=== PATIENT | female | born 1960 | race Caucasian/White ===

== ENCOUNTER → 2018-02-26 | Outpatient (CLI) | payer OTHER ==
[~2018-02-26] MED LIST: ALBU90OI6 INH; AZIT250 PO; CLON.5 PO; FOLI1 PO; HYDHOMSY PO; IBUP800 PO; LEVSOD100; LEVSOD100 PO; Leflunomide10 MG PO; METPRE4DP PO; METTREX2.5 PO; MODA200 PO; PRED5 PO; PROCODE120 PO; TRAZ50 PO; [UNRECOGNIZED DRUG - OTHER]
== END | disposition home or self-care (01) ==
LOC: LAB SHORT 16:32 → LAB 16:32
PROVIDERS: Hospitalist
DX: Z12.4 Encounter for screening for malignant neoplasm of cervix (principal)
CPT/HCPCS: G0145

== ENCOUNTER → 2018-04-08 | Outpatient (CLI) | payer OTHER | END | disposition home or self-care (01) | LOC: LAB SHORT 08:11 → PLD 08:11 | DX: R87.612 Low grade squamous intraepithelial lesion on cytologic smear of cervix (LGSIL) (principal) | CPT/HCPCS: 88305 ==

== ENCOUNTER → 2018-10-26 | Outpatient (CLI) | payer OTHER ==
[~2018-10-26] MED LIST changes: +XELJANZ XR11 MG
== END | disposition home or self-care (01) ==
LOC: PLD 14:34 → LAB SHORT 14:34
DX: M21.20 Flexion deformity, unspecified site (principal); M06.39 Rheumatoid nodule, multiple sites; M79.673 Pain in unspecified foot
CPT/HCPCS: 88305

== ENCOUNTER → 2018-12-18 | Outpatient (CLI) | payer OTHER | END | disposition home or self-care (01) | LOC: LAB SHORT 15:19 → PLD 15:19 | DX: D21.10 Benign neoplasm of connective and other soft tissue of unspecified upper limb, including shoulder (principal) | CPT/HCPCS: 88305 ==

== ENCOUNTER → 2019-02-18 | Outpatient (CLI) | payer OTHER ==
[2019-02-18 14:17] LABS: Free Thyroxine 1.19 ng/dL (0.70-1.60)
[2019-02-18 14:19] LABS: Thyroid Stimulating Hormone 0.162 uIU/mL (0.360-4.800)
== END | disposition home or self-care (01) ==
LOC: LAB SHORT 13:36 → LAB 13:36
PROVIDERS: Hospitalist
DX: E03.9 Hypothyroidism, unspecified (principal)
CPT/HCPCS: 84439; 84443

== ENCOUNTER → 2019-02-26 | Outpatient (CLI) | payer OTHER | END | disposition home or self-care (01) | LOC: PLD 15:11 → LAB SHORT 15:11 | DX: L92.8 Other granulomatous disorders of the skin and subcutaneous tissue (principal); R68.89 Other general symptoms and signs | CPT/HCPCS: 88305 ==

== ENCOUNTER → 2019-04-22 | Outpatient (CLI) | payer OTHER ==
[2019-04-26 13:06] LABS: HPV 16 Positive (Negative); HPV 18 Negative (Negative); HPV OTHER HR TYPES Positive (Negative)
== END | disposition home or self-care (01) ==
LOC: LAB SHORT 10:55 → LAB 10:55
PROVIDERS: Obstetrics & Gynecology
DX: Z01.419 Encounter for gynecological examination (general) (routine) without abnormal findings (principal)
CPT/HCPCS: 87624; 87625; G0123

== ENCOUNTER 2019-10-27 00:19 | Day surgery (SDC) | payer OTHER ==
[2019-10-27] MEDS ORDERED: OMEPRAZOLE20 MG PO (10:20)
== END 2019-10-27 11:27 | disposition home or self-care (01) ==
LOC: ATC 00:19
DX: M05.89 Other rheumatoid arthritis with rheumatoid factor of multiple sites (principal); E03.9 Hypothyroidism, unspecified; Z87.891 Personal history of nicotine dependence; Z79.899 Other long term (current) drug therapy
CPT/HCPCS: 96365; A9270; J1602

== ENCOUNTER 2019-11-24 00:14 | Day surgery (SDC) | payer OTHER ==
[~2019-11-24 00:14] MED LIST changes: +OMEPRAZOLE20 MG PO
== END 2019-11-24 11:13 | disposition home or self-care (01) ==
LOC: ATC 00:14
DX: M05.79 Rheumatoid arthritis with rheumatoid factor of multiple sites without organ or systems involvement (principal); E03.9 Hypothyroidism, unspecified; Z79.899 Other long term (current) drug therapy; Z87.891 Personal history of nicotine dependence
CPT/HCPCS: 96365; J1602

== ENCOUNTER 2020-08-30 00:30 | Day surgery (SDC) | payer MEDICARE, OTHER ==
[~2020-08-30 00:30] MED LIST changes: +PRAV20 PO; +SIMPONI AR50 MG/4 M1 IV
== END 2020-08-30 10:20 | disposition home or self-care (01) ==
LOC: ATC 00:30
DX: M05.89 Other rheumatoid arthritis with rheumatoid factor of multiple sites (principal); M85.80 Other specified disorders of bone density and structure, unspecified site; E03.9 Hypothyroidism, unspecified; Z87.891 Personal history of nicotine dependence; Z79.1 Long term (current) use of non-steroidal anti-inflammatories (NSAID); Z79.899 Other long term (current) drug therapy
CPT/HCPCS: 96365; A9270; J1602

== ENCOUNTER 2020-12-01 00:17 | Day surgery (SDC) | payer MEDICARE, OTHER ==
[2021-03-08] MEDS ORDERED: RENFLEXIS100 M1 IV (13:46)
== END 2020-12-01 10:55 | disposition home or self-care (01) ==
LOC: ATC 00:17
DX: M05.79 Rheumatoid arthritis with rheumatoid factor of multiple sites without organ or systems involvement (principal); E03.9 Hypothyroidism, unspecified; M85.80 Other specified disorders of bone density and structure, unspecified site; Z87.891 Personal history of nicotine dependence
CPT/HCPCS: 96413; 96415; A9270; J1745; J7050

== ENCOUNTER 2020-12-25 00:21 | Day surgery (SDC) | payer MEDICARE, OTHER ==
[2021-03-08] MEDS ORDERED: RENFLEXIS100 M1 IV (13:46)
== END 2020-12-25 11:44 | disposition home or self-care (01) ==
LOC: ATC 00:21
DX: M05.79 Rheumatoid arthritis with rheumatoid factor of multiple sites without organ or systems involvement (principal); E03.9 Hypothyroidism, unspecified; Z87.891 Personal history of nicotine dependence
CPT/HCPCS: 96413; 96415; A9270; J1745; J7050

== ENCOUNTER 2021-05-03 00:20 | Day surgery (SDC) | payer MEDICARE, OTHER ==
[~2021-05-03 00:20] MED LIST changes: +RENFLEXIS100 M1 IV
== END 2021-05-03 16:08 | disposition home or self-care (01) ==
LOC: ATC 00:20
DX: M05.79 Rheumatoid arthritis with rheumatoid factor of multiple sites without organ or systems involvement (principal); E03.9 Hypothyroidism, unspecified; Z87.891 Personal history of nicotine dependence; Z79.52 Long term (current) use of systemic steroids
CPT/HCPCS: 96413; 96415; J1745; J7050

== ENCOUNTER → 2021-05-31 | Outpatient (CLI) | payer MEDICARE, OTHER ==
[2021-05-31 16:51] LABS: Free Thyroxine 1.11 ng/dL (0.70-1.60); Thyroid Stimulating Hormone 0.038 uIU/mL (0.360-4.800)
== END | disposition home or self-care (01) ==
LOC: LAB 14:10 → LAB SHORT 14:10
PROVIDERS: Hospitalist
DX: E03.9 Hypothyroidism, unspecified (principal)
CPT/HCPCS: 84439; 84443

== ENCOUNTER 2021-06-28 03:59 | Day surgery (SDC) | payer MEDICARE ==
[~2021-06-28] VITALS: Wt 55.7 kg
== END 2021-06-28 16:32 | disposition home or self-care (01) ==
LOC: ATC 03:59
DX: M05.79 Rheumatoid arthritis with rheumatoid factor of multiple sites without organ or systems involvement (principal); E03.9 Hypothyroidism, unspecified; Z87.891 Personal history of nicotine dependence
CPT/HCPCS: 96413; 96415; J1745; J7050

== ENCOUNTER 2021-08-15 02:22 | Day surgery (SDC) | payer MEDICARE ==
[~2021-08-15] VITALS: Wt 53.4 kg
== END 2021-08-15 16:05 | disposition home or self-care (01) ==
LOC: ATC 02:22
DX: M05.79 Rheumatoid arthritis with rheumatoid factor of multiple sites without organ or systems involvement (principal); E03.9 Hypothyroidism, unspecified; Z86.16 Personal history of COVID-19; Z87.891 Personal history of nicotine dependence
CPT/HCPCS: 96413; 96415; J1745; J7050

== ENCOUNTER 2021-10-03 05:17 | Day surgery (SDC) | payer MEDICARE | END 2021-10-03 16:50 | disposition home or self-care (01) | LOC: ATC 05:17 | DX: M05.79 Rheumatoid arthritis with rheumatoid factor of multiple sites without organ or systems involvement (principal); E03.9 Hypothyroidism, unspecified; M85.80 Other specified disorders of bone density and structure, unspecified site; Z87.891 Personal history of nicotine dependence | CPT/HCPCS: 96413; 96415; A9270; J1745; J7050 ==

== ENCOUNTER 2021-11-22 01:05 | Day surgery (SDC) | payer MEDICARE ==
[~2021-11-22] VITALS: Wt 51.8 kg
== END 2021-11-22 16:27 | disposition home or self-care (01) ==
LOC: ATC 01:05
DX: M05.79 Rheumatoid arthritis with rheumatoid factor of multiple sites without organ or systems involvement (principal); E03.9 Hypothyroidism, unspecified; Z87.891 Personal history of nicotine dependence; Z79.899 Other long term (current) drug therapy
CPT/HCPCS: 96413; 96415; A9270; J1745; J7050

== ENCOUNTER 2022-01-03 00:14 | Day surgery (SDC) | payer MEDICARE ==
[~2022-01-03] VITALS: Wt 51.6 kg
[~2022-01-03 00:14] MED LIST changes: +ACET500 PO; +IBUP400 PO; +OXYC5 PO; +Prednisone10 MG PO
[2022-01-03] MEDS ORDERED: INFLECTRA100 MG IV (10:34)
[2022-01-04 06:10] LABS: HCV ANTIBODY <0.1 (0.0-0.9); HEP B CORE AB, IGM Negative (Negative); HEP B CORE AB, TOT Negative (Negative)
== END 2022-01-03 12:02 | disposition home or self-care (01) ==
LOC: ATC 00:14
PROVIDERS: Internal Medicine Rheumatology
DX: M05.79 Rheumatoid arthritis with rheumatoid factor of multiple sites without organ or systems involvement (principal); E03.9 Hypothyroidism, unspecified; Z87.891 Personal history of nicotine dependence
CPT/HCPCS: 86704; 86705; 86803; 96413; 96415; J7050; Q5103

== ENCOUNTER 2022-03-27 08:35 | Day surgery (SDC) | payer MEDICARE ==
[~2022-03-27] VITALS: Ht 160 cm; Wt 50.1 kg
[~2022-03-27 08:35] MED LIST changes: +CARAC30 G2; +CLON1 PO; +EUTHYROX88 MCG PO; +INFLECTRA100 MG IV; +OMEP20ER PO; +PREDNISONE5 M1 PO
[2022-03-27] MEDS ORDERED: LIOT25 (09:48)
[2022-03-27] MEDS ORDERED: OXYC5 (09:49)
== END 2022-03-27 11:06 | disposition home or self-care (01) ==
LOC: ORSCSDS 08:35
PROVIDERS: Internal Medicine Gastroenterology
PROC: 0DBH8ZX Excision of Cecum, Via Natural or Artificial Opening Endoscopic, Diagnostic (ICD-10-PCS; principal; 2022-03-27 10:15)
PROC: 0DBC8ZX Excision of Ileocecal Valve, Via Natural or Artificial Opening Endoscopic, Diagnostic (ICD-10-PCS; principal; 2022-03-27 10:15)
DX: Z12.11 Encounter for screening for malignant neoplasm of colon (principal); Z86.010 Personal history of colon polyps; D12.0 Benign neoplasm of cecum; K57.30 Diverticulosis of large intestine without perforation or abscess without bleeding; K64.8 Other hemorrhoids; K21.9 Gastro-esophageal reflux disease without esophagitis; M06.9 Rheumatoid arthritis, unspecified; Z79.899 Other long term (current) drug therapy
CPT/HCPCS: 88305; J2704; J7120

== ENCOUNTER → 2022-07-11 | Outpatient (CLI) | payer MEDICARE ==
[~2022-07-11] MED LIST changes: +LIOT25; +OXYC5
== END | disposition home or self-care (01) ==
LOC: LAB 09:15 → LAB SHORT 09:15
PROVIDERS: Hospitalist
DX: Z12.4 Encounter for screening for malignant neoplasm of cervix (principal)
CPT/HCPCS: G0145

== ENCOUNTER → 2023-04-14 | Outpatient (CLI) | payer MEDICARE ==
[2023-04-14 16:06] LABS: CHOL/HDL RATIO 2.3; Cholesterol 124 mg/dL (50-200); HDL Cholesterol 55 mg/dL (>39); Low Density Lipoprotein Chol 53 mg/dL (0-110); Thyroid Stimulating Hormone 0.021 uIU/mL (0.360-4.800); Triglycerides 78 mg/dL (30-160); Triiodothyronine, Free 10.05 pg/mL (2.18-3.98); Very Low Density Lipoprot Chol 15 mg/dL (6-32)
== END | disposition home or self-care (01) ==
LOC: LAB 08:50 → LAB SHORT 08:50
PROVIDERS: Hospitalist
DX: E03.9 Hypothyroidism, unspecified (principal); E78.5 Hyperlipidemia, unspecified
CPT/HCPCS: 80061; 84439; 84443; 84481

== ENCOUNTER → 2023-10-27 | Outpatient (CLI) | payer MEDICARE ==
[2023-10-27 15:53] LABS: BASOPHILS ABSOLUTE AUTO 0.05 K/mm3 (0.00-0.23); BASOPHILS PERCENT AUTO 1 % (0-2); EOSINOPHILS ABSOLUTE AUTO 0.16 K/mm3 (0.00-0.68); EOSINOPHILS PERCENT AUTO 3 % (0-6); Hematocrit 38.7 % (33.0-51.0); Hemoglobin 12.4 g/dL (11.5-16.0); IMMATURE GRAN ABSOLUTE AUTO 0.01 K/mm3 (0.00-0.10); IMMATURE GRAN PERCENT AUTO 0 % (0-1); LYMPHOCYTES ABSOLUTE AUTO 1.48 K/mm3 (0.84-5.20); LYMPHOCYTES PERCENT AUTO 27 % (21-46); MONOCYTES ABSOLUTE AUTO 0.38 K/mm3 (0.16-1.47); MONOCYTES PERCENT AUTO 7 % (4-13); Mean Corpuscular HGB 31.6 pg (26.0-34.0); Mean Corpuscular Volume 99 fL (80-100); Mean Platelet Volume 10.1 fL (9.1-12.4); NEUTROPHILS ABSOLUTE AUTO 3.43 K/mm3 (1.96-9.15); NEUTROPHILS PERCENT AUTO 62 % (41-73); Platelet Count 244 K/mm3 (150-400); RDW Standard Deviation 46.1 fL (35.1-46.3); Red Blood Cell Count 3.92 M/mm3 (3.80-5.20); White Blood Cell Count 5.51 K/mm3 (4.00-11.30)
[2023-10-27 18:55] LABS: Free Thyroxine 1.02 ng/dL (0.70-1.60)
[2023-10-27 18:58] LABS: Albumin, Blood 3.4 g/dL (3.4-5.0); Albumin/Globulin Ratio 0.8 (0.8-1.8); Bilirubin, Total 0.3 mg/dL (0.1-1.0); Bun/Creatinine Ratio 15.6 (12.0-20.0); Calcium, Blood 9.3 mg/dL (8.5-10.1); Creatinine, Blood 0.64 mg/dL (0.40-1.00); Thyroid Stimulating Hormone 0.016 uIU/mL (0.360-4.800); Total Protein, Blood 7.4 g/dL (6.4-8.2)
[2023-10-29 12:59] LABS: B. BURGDORFERI IGG IMMUNOBLOT Negative (Negative); B. BURGDORFERI IGM IMMUNOBLOT Positive (Negative)
== END | disposition home or self-care (01) ==
LOC: LAB SHORT 14:15 → LAB 14:15
PROVIDERS: Hospitalist
DX: E03.9 Hypothyroidism, unspecified (principal); E55.9 Vitamin D deficiency, unspecified; R53.83 Other fatigue
CPT/HCPCS: 80053; 82306; 84439; 84443; 85025; 86617